=== PATIENT | female | born 1955 | race Caucasian/White ===

== ENCOUNTER 2021-01-29 17:02 | Emergency (ER) | payer OTHER ==
--- NOTE | 2021-01-29 19:48 | ERPHSYRPT ---
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 moody wrap to left wrist, has scabs to lower legs, no bruising noted Physician History: 65 yo wf who was visiting [facility] fell when her L knee gave out injuring her head/L forearm/L knee. Pt has chronic pain in her L knee and also has pain in her L forearm for previous fall 1 wk ago which was seen/treated at [facility]. Pt denies LOC/focal weakness/chest pain/dyspnea/C,T,L-spine pain/Hip pain. She ambulates w a walker at home but was not using one in the hospital. Occurred: just prior to arrival Reason for Fall: lost balance Injuries/Pain Location: head, upper extremity, lower extremity Loss of Consciousness: no loss of consciousness Quality: aching Severity of Pain-Max: moderate Severity of Pain-Current: moderate Modifying Factors: Improves With: movement Associated Symptoms (Fall): extremity injury, headache, No abdominal pain, No back pain, No confusion, No chest pain, No dizziness, No lightheadedness, No muscle spasms, No nausea, No neck pain, No ringing in ears, No seizures, No shortness of breath, No slurred speech, No trouble walking, No vomiting, No vision changes Allergies/Adverse Reactions: bee venom protein (honey bee) Allergy (Verified 01/29/21 17:11) Iodine and Iodide Containing Produc Allergy (Verified 01/29/21 17:11) levofloxacin [From Levaquin] Allergy (Verified 01/29/21 17:11) Penicillins Allergy (Verified 01/29/21 17:11) Hx Influenza Vaccination/Date Given: Yes Hx Pneumococcal Vaccination/Date Given: Yes Immunizations Up to Date: Yes Travel Risk - International Travel Have you traveled outside of the country in past 3 weeks: No - Coronavirus Screening Are you exhibiting any of the following symptoms?: No Close contact with a COVID-19 positive Pt in past 14-21 Days: No - Vaccine Status Have you recieved a Covid-19 vaccination: Yes Tiller Man: Pfizer - Vaccination Dates Date of 2cond Vaccination (if applicable): december - Review of Systems Constitutional: No Symptoms Eyes: No Symptoms Ears, Nose, & Throat: No Symptoms Respiratory: No Symptoms Cardiac: No Symptoms Abdominal/Gastrointestinal: No Symptoms Genitourinary Symptoms: No Symptoms Skin: No Symptoms Neurological: No Symptoms Psychological: No Symptoms Endocrine: No Symptoms Hematologic/Lymphatic: Easy Bruising Immunological/Allergic: No Symptoms - Past Medical History Pertinent Past Medical History: Yes Cardiac History: High Cholesterol, Hypertension, Peripheral Vascular Disease Endocrine Medical History: Hypothyroidism - Past Surgical History Past Surgical History: Yes Cardiac: Cardiac Stent Gastrointestinal: Appendectomy - Social History Smoking Status: Never smoker Exposure to second hand smoke: No Drug Use: none Patient Lives Alone: No Significant Family History: no pertinent family hx - Female History Hx Last Menstrual Period: post Hx Now: No - Nursing Vital Signs Nursing Vital Signs: Initial Vital Signs Temperature 97.4 F 01/29/21 17:03 Pulse Rate 68 01/29/21 17:03 Respiratory Rate 18 01/29/21 17:03 Blood Pressure 169/78 01/29/21 17:03 O2 Sat by Pulse Oximetry 97 01/29/21 17:03 Pain Scale Pain Intensity 10 - Jones Coma Score Best Eye Response (Jones): (4) open spontaneously Best Verbal Response (Jones): (5) oriented Best Motor Response (Mccamey): (6) obeys commands Mccamey Total: 15 - Physical Exam General Appearance: no apparent distress Head Injury: tenderness (Occiput wo hematoma or palpable fx) Eye Exam: PERRL/EOMI, eyes nml inspection ENT Exam: airway nml, No evidence of ENT injury, No clear fluid (ears), No clear fluid (nose) Neck Exam: supple, trachea midline, full range of motion, normal inspection (No C-spine TTP) Respiratory/Chest Exam: normal breath sounds, No chest tenderness, No respiratory distress Cardiovascular Exam: normal heart sounds, regular rate/rhythm, normal peripheral pulses, No murmur, No edema Gastrointestinal Exam: soft, normal bowel sounds, No tenderness Back Exam: normal inspection (No T or L-spine ttp) Extremity Exam: evidence of injury (L forearm TTP/Mild edema/No deformity/L knee mild pretibial TTP wo edema, deformity, or ecchymosis/No obvious instability) Peripheral Pulses: carotid (R): 2+, carotid (L): 2+ Neurologic Exam: alert, oriented x 3, cooperative, normal mood/affect, nml cerebellar function, nml station & gait, sensation nml, No motor deficits, No sensory deficit Skin Exam: normal color, warm, dry SpO2 Interpretation: normal SpO2: 98 O2 Delivery: Room Air - Course Nursing assessment & vital signs reviewed: Yes - Radiology Exams Forearm X-ray Interpretation: Interpreted by me (L forearm neg) Knee X-ray Interpretation: Interpreted by me (Neg) - CT Exams Head CT Interpretation: Tele-radiologist Report (Neg) Ordered Tests: Active Orders 24 hr Category Date Time Status Moody Bandage Application -[facility] STAT Care 01/29/21 19:54 Completed FOREARM Stat Exams 01/29/21 19:26 Taken HEAD WITHOUT CONTRAST [CT] Stat Exams 01/29/21 17:57 Taken KNEE (3 VIEWS) Stat Exams 01/29/21 19:26 Taken Medication Summary Discontinued Medications Generic Name Dose Route Start Last Admin Trade Name Donaldq PRN Reason Stop Dose Admin Ketorolac Tromethamine 30 mg 01/29/21 19:54 01/29/21 19:56 Toradol 30 Mg Injection IM 01/29/21 19:55 30 mg STAT ONE Administration Ketorolac Tromethamine Confirm 01/29/21 19:55 Toradol 30 Mg Injection Administered 01/29/21 19:56 Dose 30 mg .ROUTE .STK-MED ONE - Progress Progress Note: 01/29/21 19:55 Moody wrap L knee per nursing/NVI 30mg IM toradol Counseled pt/family regarding: need for follow-up, rad results - Departure Departure Disposition: Home Clinical Impression: Contusion, Head injury Condition: Stable Critical Care Time: No Referrals: DEANN FERMIN JR [Primary Care Provider] - Instructions: Chronic Knee Pain, Contusion (DC), Minor Head Injury (DC) Additional Instructions: Ice to knee/forearm for 12-24 hours Follow up with your family MD early next week Return to ER for increasing pain/focal weakness Use your walker
[2021-01-29] MEDS ORDERED: TORAdol 30 mg Injection IM ONE (19:54)
[2021-01-29] MEDS ORDERED: TORAdol 30 mg Injection ONE (19:55)
[2021-01-29 20:10] VITALS: BP 152/45; PULSE 66
[2021-01-29 21:12] VITALS: O2SAT 98
--- NOTE | 2021-01-29 21:42 | XRAY ---
Indication: Status post fall. Comparison: None 3 view left knee demonstrates small nonspecific effusion and tiny posterior fabella. No other bony, articular, or soft tissue abnormalities.
--- NOTE | 2021-01-29 21:44 | XRAY ---
Indication: Headache following fall. Posterior head injury. Multiple contiguous axial images obtained through the head without contrast. Comparison: None Normal appearing brain parenchyma, ventricles, and bony calvarium for patient's age. Visualized paranasal sinuses and mastoid air cells are clear. Impression: Normal CT head without contrast exam. Comment: Preliminary interpretation was made by [facility]. No critical discrepancy.
--- NOTE | 2021-01-29 21:44 | XRAY ---
Indication: Status post fall. Comparison: None 2 view left forearm obtained. No bony, articular, or soft tissue abnormalities.
== END 2021-01-29 20:08 | disposition home or self-care (01) ==
LOC: ED 17:02
DX: S00.93XA Contusion of unspecified part of head, initial encounter (principal); W19.XXXA Unspecified fall, initial encounter; Y93.89 Activity, other specified; Y92.89 Other specified places as the place of occurrence of the external cause; I10 Essential (primary) hypertension; I73.9 Peripheral vascular disease, unspecified; E03.9 Hypothyroidism, unspecified
CPT/HCPCS: 70450; 73090; 73562; 96372; 99284; J1885